=== PATIENT | female | born 1965 | race Caucasian/White ===

== ENCOUNTER 2017-05-06 22:43 | Emergency (ER) | payer MEDICARE, OTHER ==
[~2017-05-06] VITALS: Ht 162.6 cm; Wt 63.5 kg
[~2017-05-06 22:43] MED LIST: CARB200T PO; DISU500T PO; DIVA250T4; FLUO10CA26 PO; FOLI1TAB16 PO; PARO10TA3 PO; PHEN100C4; QUET50TA PO; WARF1TAB47
--- NOTE | 2017-05-06 23:25 | NUR ---
RECEIVED REPORT FROM PRIMARY NURSE NADYA AND ASSUMED CARE OF PT AT THIS TIME. AWAKE TALKING TO PT NEXT BED. DENIES ANY SX'S AT THIS TIME. RESP EVEN AND UNLABORED. NON DIAPHORETIC. ON MONITOR. AWARE OF PLANS OF CARE.
--- NOTE | 2017-05-07 00:31 | NUR ---
AWAKE WITH NO C/O AT THIS TIME. RESP EVEN AND UNLABORED.
--- NOTE | 2017-05-07 01:03 | NUR ---
Denies any sx's at this time. Patient discharged to home in stable condition. Written and verbal after care instructions given. Patient verbalizes understanding of instruction. Ambulatory with steady gait
[2017-05-07 01:04] VITALS: BP 110/67
== END 2017-05-07 01:05 | disposition home or self-care (01) ==
LOC: ER 22:45
DX: F10.129 Alcohol abuse with intoxication, unspecified (principal); G40.909 Epilepsy, unspecified, not intractable, without status epilepticus; Z79.01 Long term (current) use of anticoagulants; F17.200 Nicotine dependence, unspecified, uncomplicated
CPT/HCPCS: 82962; 99283; A4606; Z7610

== ENCOUNTER 2017-09-07 00:41 | Emergency (ER) | payer MEDICARE, OTHER ==
[~2017-09-07] VITALS: Ht 167.6 cm; Wt 65.8 kg
[2017-09-07 00:41] VITALS: BP 134/77
[~2017-09-07 00:41] MED LIST changes: -PARO10TA3 PO; +PARO10TA4 PO
--- NOTE | 2017-09-07 01:43 | NUR ---
CALLED FOR ROOM ASSIGNMENT X4; NOT IN LOBBY
== END 2017-09-07 01:45 | disposition left against medical advice (07) ==
LOC: ER 00:42
DX: Z53.21 Procedure and treatment not carried out due to patient leaving prior to being seen by health care provider (principal)
CPT/HCPCS: A4606; Z7610

== ENCOUNTER 2017-09-07 03:42 | Emergency (ER) | payer MEDICARE, OTHER ==
[~2017-09-07] VITALS: Ht 170.2 cm; Wt 64.4 kg
[2017-09-07 03:43] VITALS: BP 135/78
== END 2017-09-07 04:52 | disposition home or self-care (01) ==
LOC: ER 03:43
DX: F10.229 Alcohol dependence with intoxication, unspecified (principal); G40.909 Epilepsy, unspecified, not intractable, without status epilepticus; F17.200 Nicotine dependence, unspecified, uncomplicated; Z79.01 Long term (current) use of anticoagulants
CPT/HCPCS: A4606; Z7610

== ENCOUNTER 2017-09-07 07:33 | Emergency (ER) | payer MEDICARE, OTHER ==
[~2017-09-07] VITALS: Ht 170.2 cm; Wt 72.6 kg
--- NOTE | 2017-09-07 07:40 | NUR ---
[facility] FROM [employer], C/O WEAKNESS. PT WAS SEEN HERE LAST NIGHT FOR ETOH INTOXICATION, BS-83. A/OX 4. BREATHING EVEN AND UNLABORED. NO SOB. NO NEURO DEFICITS. VITALS STABLE. SAFETY AND COMFORT MEASURES IN PLACE. AWAITING MD ORDERS.
--- NOTE | 2017-09-07 08:25 | NUR ---
REJI GUNN AT BEDSIDE.
--- NOTE | 2017-09-07 08:37 | NUR ---
Social service consult requested by Dr. Catalan for alcohol use and frequent ED visits. Pt. is a 52 year old female who came to the ED via ambulance for alcohol intoxication. Pt. is alert and oriented x 4. Pt. was sitting upright in the bed eating breakfast. Pt. states she resides with her twin brothers at [address] [place] [address] in [facility]. 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 Pt. is an alcoholic and drinks daily. Pt. has been to several alcohol treatment programs in the past. The last program pt. attended was in 2010. Pt. states her mom has Alzheimer's and is dying. Pt. became tearful. LUIS A provided emotional support to the pt and encouraged pt. to attend an alcohol treatment program and the Partial Hospitalization Program at [facility]. Pt. requested for LUIS A to contact her brother Tj. LUIS A contacted Tj and informed him that his sister is back at [facility]. Tj informed SW that he will come pick her up. LUIS A informed OFELIA Villanueva and Dr. Catalan regarding pt's discharge plan.
[2017-09-07 09:08] VITALS: BP 124/71
--- NOTE | 2017-09-07 09:08 | NUR ---
Patient discharged to home in stable condition. Written and verbal after care instructions given. Patient verbalizes understanding of instruction.
== END 2017-09-07 09:08 | disposition home or self-care (01) ==
LOC: ER 07:34
DX: R42 Dizziness and giddiness (principal); F10.129 Alcohol abuse with intoxication, unspecified; G40.909 Epilepsy, unspecified, not intractable, without status epilepticus; F17.200 Nicotine dependence, unspecified, uncomplicated; Z79.01 Long term (current) use of anticoagulants
CPT/HCPCS: A4606; Z7610

== ENCOUNTER 2018-01-29 17:50 | Emergency (ER) | payer MEDICARE, OTHER ==
[~2018-01-29] VITALS: Ht 167.6 cm; Wt 77.1 kg
--- NOTE | 2018-01-29 18:00 | NUR ---
[id number] FROM [facility]: ETOH INTOXICATED. ALTERED, BELLIGERENT AT THIS TIME. BREATHING EVEN AND UNLABORED. NO SOB, NAD, VITALS STABLE. SAFETY AND COMFORT MEASURES IN PLACE. AWAITING MD ORDERS.
--- NOTE | 2018-01-29 19:10 | NUR ---
REPORT GIVEN TO SAHRA GILBERT FOR GINA.
--- NOTE | 2018-01-29 19:17 | NUR ---
PT SLEEPING IN BED COMFORTABLE
--- NOTE | 2018-01-29 20:11 | NUR ---
AINSLEY - BROTHER [phone]
[2018-01-29 23:00] VITALS: BP 133/81
== END 2018-01-29 23:00 | disposition home or self-care (01) ==
LOC: ER 17:51
DX: F10.129 Alcohol abuse with intoxication, unspecified (principal); F17.200 Nicotine dependence, unspecified, uncomplicated; G40.909 Epilepsy, unspecified, not intractable, without status epilepticus; Z79.01 Long term (current) use of anticoagulants
CPT/HCPCS: A4606; Z7610

== ENCOUNTER 2023-09-18 06:53 | Emergency (ER) | payer MEDICARE, OTHER ==
[~2023-09-18] VITALS: Ht 160 cm; Wt 59.0 kg
[~2023-09-18 06:53] MED LIST changes: +WARF1TAB; -WARF1TAB47
[2023-09-18 07:13] VITALS: TEMP 98.4
[2023-09-18] MEDS: IV NS 0.9% 1,000 ML BAG IV ONE ×2 (07:40→09:50)
[2023-09-18 07:46] LABS: BASOPHILS % (AUTO) 0.5 % (0.0-2.0); EOSINOPHILS # (AUTO) 0.2 K/uL (0.0-0.7); EOSINOPHILS % (AUTO) 3.7 % (0.0-6.0); HEMATOCRIT 26 % (33-45); LYMPHOCYTES # (AUTO) 2.7 K/uL (0.8-4.8); LYMPHOCYTES % (AUTO) 51.1 % (20.0-44.0); MEAN CORPUSCULAR HEMOGLOBIN 37 PG (26.0-33.0); MEAN CORPUSCULAR HGB CONC 34 g/dl (31.0-36.0); MEAN CORPUSCULAR VOLUME 107 fL (82-100); MONOCYTES # (AUTO) 0.4 K/uL (0.1-1.30); MONOCYTES % (AUTO) 6.9 % (2.0-12.0); NEUTROPHILS % (AUTO) 37.8 % (43.0-81.0); PLATELET COUNT (AUTO) 621 K/uL (150-450); RED BLOOD CELL COUNT(AUTO) 2.47 MIL/uL (4.0-5.2); RED CELL DISTRIBUTION WIDTH 20.7 % (11.5-15.0); WHITE BLOOD COUNT (AUTO) 5.2 K/uL (4.3-11.0)
[2023-09-18 08:08] LABS: ALANINE AMINOTRANSFERASE 10 U/L (12-78); ALBUMIN 3.6 g/dL (3.4-5.0); ALKALINE PHOSPHATASE 69 U/L (46-116); ASPARTATE AMINOTRANSFERASE 6 U/L (15-37); BILIRUBIN,DIRECT 0.1 mg/dL (0.0-0.2); BILIRUBIN,TOTAL 0.2 mg/dL (0.2-1.0); CALCIUM, SERUM 8.6 mg/dL (8.5-10.1); CARBON DIOXIDE 26 mmol/L (21-32); CHLORIDE 104 mmol/L (98-107); CREATININE 0.8 mg/dL (0.6-1.3); GLUCOSE 109 mg/dL (74-106); POTASSIUM 3.4 mmol/L (3.5-5.1); SODIUM SERUM 138 mmol/L (136-145); TOTAL PROTEIN, SERUM 7.7 g/dL (6.4-8.2); UREA NITROGEN, BLOOD 18 mg/dL (7-18)
[2023-09-18 12:19] VITALS: BP 136/94; O2SAT 98
[2023-09-18 12:47] LABS: APPEARANCE,URINE CLEAR (CLEAR); BILIRUBIN,URINE NEGATIVE (NEGATIVE); BLOOD, URINE NEGATIVE Ery/uL (NEGATIVE); COLOR,URINE YELLOW (YELLOW); KETONES,URINE TRACE mg/dL (NEGATIVE); LEUKOCYTE ESTERASE ,URINE NEGATIVE (NEGATIVE); NITRITE, URINE NEGATIVE (NEGATIVE); PH,URINE 5.5 (5.0-8.0); PROTEIN,URINE NEGATIVE (NEGATIVE); UGLUCOSE NEGATIVE (NEGATIVE); UROBILINOGEN,URINE 0.2 EU/dL (0.2)
[2023-09-18 12:54] LABS: ADD URINE CULTURE NO; BACTERIA,URINE Rare /HPF (None Seen); RBC,URINE 0-2 /HPF (0-2); SQUAMOUS EPITHELIAL CELL,UR Rare /HPF (None Seen); WBC,URINE 0-2 /HPF (0-3)
[2023-09-18 13:12] LABS: AMPHETAMINE, URINE NEGATIVE (NEGATIVE); BENZODIAZEPINE, URINE NEGATIVE (NEGATIVE); CANNABINOID, URINE NEGATIVE (NEGATIVE); COCCAINE, URINE NEGATIVE (NEGATIVE); OPIATE, URINE NEGATIVE (NEGATIVE); PHENCYCLIDINE SCREEN,URINE NEGATIVE (NEGATIVE)
[2023-09-18 13:28] LABS: BARBITURATE, URINE POSITIVE (NEGATIVE)
== END 2023-09-18 12:20 | disposition home or self-care (01) ==
LOC: ER 07:06
DX: R55 Syncope and collapse (principal); E86.0 Dehydration; F41.9 Anxiety disorder, unspecified; F31.9 Bipolar disorder, unspecified; Z20.822 Contact with and (suspected) exposure to COVID-19
CPT/HCPCS: 99285; 96360; 96361; 93005; 71045; 70450; 85025; 80048; 80076; 81001; 36415; 84443; 84484; 87426; 80320; 80307; J7030; G0480